=== PATIENT | female | born 1950 | race Caucasian/White ===

== ENCOUNTER 2020-06-21 11:47 | Emergency (ER) | payer MEDICARE, SELFPAY ==
--- NOTE | 2020-06-21 | XR_ITS ---
EXAMINATION: XR ANKLE, RIGHT CLINICAL INFORMATION: Fall, pain COMPARISON: None TECHNIQUE: AP, lateral, and mortise views of the right ankle. FINDINGS: The bones and soft tissues are normal. No fracture. Alignment is anatomic. Joint spaces are maintained. No joint effusion. There is a small retrocalcaneal and tip of medial malleolar enthesophyte. There is mild medial malleolar soft tissue swelling XR/XR ankle RT min 3V IMPRESSION: Unremarkable right ankle exam except for small retrocalcaneal and tip of medial malleolus enthesophyte. Mild medial malleolar soft tissue swelling.
[2020-06-21 12:04] VITALS: BP 167/64; PULSE 77; RESP 20; TEMP 36.7; O2SAT 95; BMI 31.4
--- NOTE | 2020-06-21 14:48 | ED.LOWEXIN ---
HPI - Extremity Injury (Lower) General Chief Complaint: Extremity Injury, Lower Stated Complaint: FALL, ANKLE SWELLING Time Seen by Provider: 06/21/20 14:42 Source: patient Mode of arrival: ambulatory Limitations: no limitations History of Present Illness HPI Narrative: 69 y/o female presenting with right ankle pain after she slipped and fell yesterday while running outside to go find her lost dog. She states she slipped and twisted her ankle on the bottom steps of her front porch. She fell backward and hit the back of her head. She did not lose consciousness and she is not on blood thinners. She was able to get up and walk afterwards with some right ankle discomfort. She woke up this morning with bruising and swelling and continued pain so she wants to make sure it is not fractured. MD complaint: ankle injury Onset (ago): day(s) (1) Injury: Right: ankle Type of Injury: unknown Place: home Severity: moderate Relieving factors: NSAID and cold therapy Exacerbating factors: weight bearing, movement and palpation Context: fall Associated symptoms: swelling and able to partially bear weight Other symptoms: none Review of Systems Review of Systems: Constitutional: No Fever, No Chills Musculoskeletal: + joint pain, No Myalgias Skin: + Skin Lesions (top of ankle), No rash Neuro: No Weakness, No Numbness, No Dizziness, No Headache Psych: No Anxiety/Panic, No Depression Heme/Lymph: + Bruising, No Lymphadenopathy PMFSH Past Medical History Attestation statement: The following information was validated with the patient. Social History Social History Advance Directives: No Advance Directives Information Provided: No Physical Exam Vital Signs: Vital Signs: Last Vital Signs Temp 98.1 F 06/21/20 12:04 Pulse 77 06/21/20 12:04 Resp 20 06/21/20 12:04 BP 167/64 H 06/21/20 12:04 Pulse Ox 95 06/21/20 12:04 Body Mass Index 31.4 Appearance: Alert. Oriented X3. No acute distress. HEENT: atraumatic, no palpable scalp hematoma or deformity. normal inspection CVS: Normal heart rate and rhythm. Pulses normal. Respiratory: No respiratory distress. Skin: Skin warm and dry. Normal skin color. Normal skin turgor. No rashes. Extremities: right ankle with mild medial and lateral edema, mild ecchymosis medially with tenderness, small abrasion to the anterior ankle. normal ROM with some discomfort. Neuro: Oriented X 3. No motor deficit. No sensory deficit. Able to partially bear weight, has a limp Course Course Course Narrative: 69 y/o female presenting with right ankle pain after a fall. No other injuries. XR is negative for fracture. Placed in NATALIE wrap for comfort. Discussed results and management of ankle sprain. She is refusing crutches at this time and has a walker at home to help her ambulate while healing. She will f/u with her PCP this week. Stable for discharge. MDM - Extremity Injury (Lower) Differential Diagnosis Differential diagnosis: Likely ankle sprain and strain and ankle fracture Critical Care Time Critical Care Time Critical Care Time: No Discharge Plan Discharge Clinical Impression: Ankle sprain and strain Patient Disposition: Home, Self-Care Instructions: Ankle Sprain (ED) Additional Instructions: Your x-ray today did not show any fracture. Recommend wearing NATALIE wrap to help with swelling and comfort. Use ice several times per day and elevate your foot when possible. You may bear weight as tolerated. Take Tylenol and/or Motrin as needed for pain. Follow up with your doctor this week.
== END 2020-06-21 15:26 | disposition home or self-care (01) ==
PROVIDERS: Emergency Provider Emergency Medicine Emergency Medical Services; PCP Internal Medicine
DX: S93.401A Sprain of unspecified ligament of right ankle, initial encounter (principal); M25.571 Pain in right ankle and joints of right foot; M25.471 Effusion, right ankle; W01.0XXA Fall on same level from slipping, tripping and stumbling without subsequent striking against object, initial encounter; Y93.02 Activity, running; Y92.9 Unspecified place or not applicable; Y99.9 Unspecified external cause status
CPT/HCPCS: 73610; 99283

== ENCOUNTER 2022-07-05 18:14 | Outpatient (REF) | payer MEDICARE, SELFPAY ==
[2022-07-05 19:10] LABS: Influenza A PCR NEGATIVE (Negative); Influenza B PCR NEGATIVE (Negative); Resp Syncy Virus RNA Qual PCR NEGATIVE (Negative); SARS COV2 PCR INHOUSE NEGATIVE (Negative)
== END 2022-07-05 18:15 | disposition home or self-care (01) ==
LOC: HO.LNP 18:14
PROVIDERS: Visit Provider Internal Medicine
DX: Z20.822 Contact with and (suspected) exposure to COVID-19 (principal); R43.9 Unspecified disturbances of smell and taste
CPT/HCPCS: 0241U